=== PATIENT | female | born 1985 | race Caucasian/White ===

== ENCOUNTER 2017-12-24 18:29 | Emergency (ER) | payer OTHER ==
[2017-12-24 20:24] LABS: BILIRUBIN, URINE NEG (NEG); BLOOD, URINE NEG (NEG); GLUCOSE,URINE NEG (NEG); KETONE, URINE 10 mg/dL (NEG); NITRITE,URINE NEG (NEG); PH, URINE 6.5 (5.0-8.5); SQUAMOUS EPITHELIAL CELL URINE 12 /hpf (0-5); URINE COLOR YELLOW (YELLW/STRAW); URINE LEUKOCYTE ESTERASE LARGE (NEG)
--- NOTE | 2017-12-24 20:49 | PD ---
HPI Chief Complaint ctxs Date Seen: Dec 24, 2017 Time Seen: 20:42 Travel History International Travel<30 Days: No Contact w/Intl Traveler<30Days: No Known Affected Area: No History of Present Illness HPI pt. is a 32 y/o @ 33 4/7 weeks w/ c/o ctxs. pt. states been having cramping since 4pm. has increased in intensity and freq since. +FM, no lof/vb. Weeks Gestation: 33 Para: 0 : 2 History Past Medical History Medical History: Denies Significant Hx Obstetric History Obstetric History , ectopic preg x 1 Past Surgical History Narrative Surgical s/p lap salpingect 2/2 ectopic preg. Family History Family History: Negative Social History Alcohol Use: No Tobacco Use: No Substance Abuse: No Allergies-Medications (Allergen,Severity, Reaction): Coded Allergies: No Known Allergies (Verified Allergy, 12/24/17) Review of Systems Except as stated in HPI: all other systems reviewed are Neg Physical Exam Narrative GENERAL: Well-nourished, well-developed patient. SKIN: Warm and dry. HEAD: Normocephalic and atraumatic. EYES: No scleral icterus. No injection or drainage. ENT: No nasal drainage noted. Mucous membranes pink. Airway patent. NECK: Supple, trachea midline. No JVD. CARDIOVASCULAR: Regular rate and rhythm without murmurs, gallops, or rubs. RESPIRATORY: Breath sounds equal bilaterally. No accessory muscle use. BREASTS: Bilateral exam showed no masses , no retractions, no nipple discharge. ABDOMEN/GI: Abdomen soft, non-tender, bowel sounds present, no rebound, no guarding Gravid GENITOURINARY: External Genitalia: intact and normal in appearance Cervix: post Dilatation: closed Effacement: long Station: high Uterine Contractions: irreg FHT's: Category: 1 Reactive: + Variability: mod EXTREMITIES: No cyanosis or edema. BACK: Nontender without obvious deformity. No CVA tenderness. NEUROLOGICAL: Awake and alert. Motor and sensory grossly within normal limits. Five out of 5 muscle strength in all muscle groups. Normal speech. Data Data Vital Signs Reviewed: Yes Orders Orders Urinalysis - C+S If Indicated (12/24/17 19:43) Polysomnography Technician Clear For Discharge (12/24/17 ) Labs Laboratory Tests Test 12/24/17 19:49 Urine Color YELLOW Urine Turbidity HAZY Urine pH 6.5 Urine Specific [place] 1.016 Urine Protein NEG Urine Glucose (UA) NEG Urine Ketones 10 Urine Occult Blood NEG Urine Nitrite NEG Urine Bilirubin NEG Urine Urobilinogen LESS THAN 2.0 Urine Leukocyte Esterase LARGE Urine RBC 1 Urine WBC 8 Urine Squamous Epithelial Cells 12 Microscopic Urinalysis Comment CULT NOT INDICATED MDM Medical Record Reviewed: Yes Plan pt. given oral hydration w/ improvement in ctxs. pt. ua show ketones and pt. not hydrating and eating well. condition d/w pt. pt. to be d/c to home. given precautions for return. f/u as sched. Diagnosis Diagnosis: Primary Impression: uterine contractions in third trimester, antepartum Additional Impression: 33 weeks gestation of Disposition: 01 DISCHARGE HOME Patient Instructions: General Instructions, Labor (ED) Departure Forms: Tests/Procedures Nicolás Gentile Jr., MD Dec 24, 2017 20:49
== END 2017-12-24 20:52 | disposition home or self-care (01) ==
LOC: HOBED 18:29
DX: O99.89 Other specified diseases and conditions complicating pregnancy, childbirth and the puerperium (principal); N85.8 Other specified noninflammatory disorders of uterus; Z3A.33 33 weeks gestation of pregnancy
CPT/HCPCS: 59025; 81001

== ENCOUNTER 2018-01-07 10:12 | Emergency (ER) | payer OTHER ==
--- NOTE | 2018-01-07 10:54 | PD ---
HPI Chief Complaint ctx Date Seen: Jan 07, 2018 Time Seen: 10:50 Travel History International Travel<30 Days: No Contact w/Intl Traveler<30Days: No Known Affected Area: No History of Present Illness HPI Pt is a 32y/o @ 35.0wks. She has PNC with Dr. Mccall. She presents with c/o ctx which started at 9am and are coming q5m. She reports that they are painful. No LOF, VB. +FM. Weeks Gestation: 35 Para: 0 : 2 History Past Medical History Medical History: Denies Significant Hx Obstetric History Obstetric History 1. ectopic 2. current Past Surgical History Narrative Surgical LSC salpingectomy Family History Family History: Negative Social History Alcohol Use: No Tobacco Use: No Substance Abuse: No Allergies-Medications (Allergen,Severity, Reaction): Coded Allergies: No Known Allergies (Verified Allergy, Unknown, 12/24/17) Narrative Medication vitamins Review of Systems Except as stated in HPI: all other systems reviewed are Neg Physical Exam Narrative General: well developed, well nourished, no acute distress HEENT: normocephalic atraumatic, extraocular movements intact, neck supple Abdomen: soft, gravid, nontender, nondistended Uterus: fundus above umbilicus Extremities: full range of motion Skin: normal coloration, no rashes, no suspicious skin lesions noted Neurologic: cranial nerves 2-12 grossly intact, normal muscle tone, normal gait Psychiatric: normal mood and affect, appropriate FHTs: 120s, +accels, no decels, moderate variability, reactive [place]: single ctx seen Cvx: cl/th/hi Data Data Orders Orders Vital Signs (Adult) .ON ADMISSION (01/07/18 10:49) ^ Labor Status (01/07/18 10:49) ^ Non Stress Test (01/07/18 10:49) Ed Discharge Order (01/07/18 10:49) MDM Plan 32y/o @ 35.0wks with contractions. -- single ctx seen on toco -- cvx cl/th/hi -- FHTs cat 1 Dispo: stable for d/c home with precautions Diagnosis Diagnosis: Primary Impression: 35 weeks gestation of Additional Impression: Uterine contractions during Lesli Arroyo MD Jan 07, 2018 10:54
== END 2018-01-07 11:01 | disposition home or self-care (01) ==
LOC: HOBED 10:12
DX: O47.03 False labor before 37 completed weeks of gestation, third trimester (principal); Z3A.35 35 weeks gestation of pregnancy
CPT/HCPCS: 99283

== ENCOUNTER 2018-02-05 05:37 | Inpatient (IN) | payer OTHER ==
--- NOTE | 2018-02-04 07:54 | MH ---
cc: Jeff Mccall MD DATE OF ADMISSION: 02/05/2018 REASON FOR ADMISSION: Elective section at term. HISTORY OF PRESENT ILLNESS: The patient is a 32-year-old female, 2, para 0, IVF conception with estimated date of confinement of 02/11/2018 confirmed by serial ultrasound. Patient's course has been remarkable for presence of group B strep on a random culture. Blood type is A positive, screen negative. The remainder of her testing has all been normal. The patient's pelvic exam is notable for marked android pelvis with acute pubic arch. The patient is 4 feet 8 in height with estimated weight of 7-1/2 pounds. Consideration for cephalopelvic proportion was discussed, concerns for the patient's pelvic exam prohibiting vaginal delivery, the patient elected for section at term. PAST MEDICAL HISTORY: She denies any systemic or chronic disease states. ALLERGIES: NO KNOWN DRUG ALLERGIES. CURRENT MEDICATIONS: Include vitamins. PAST SURGICAL HISTORY: Includes ectopic in 2012 with removal of the right tube, operative laparoscopy for evaluation of fertility in 2013. FAMILY HISTORY: Noncontributory. SOCIAL HISTORY: She denies alcohol, tobacco or illicit drug use. She is . PHYSICAL EXAMINATION: GENERAL: The patient is a well-appearing, well-nourished female, in no acute distress. VITAL SIGNS: Stable. Blood pressure 138/72, pulse and respiratory rate are normal. heart tones in the 140s. The patient's weight is 165 pounds, approximately a 30-pound weight gain from the beginning of . HEENT: Normal. Pupils are equal, round, reactive to light. Sclerae are clear. NECK: Supple, full range of motion. EXTREMITIES: There is no cyanosis, clubbing, or edema of the lower extremities. LUNGS: Clear in all ruffin. CARDIAC: Regular rate and rhythm. ABDOMEN: Gravid, full-term. PELVIC: Presenting part is not in the pelvis. Cervix is long, closed and thick. NEUROLOGIC: Grossly intact, nonfocal. ASSESSMENT: The patient is 39 weeks' gestation, in vitro fertilization conception with contracted pelvis. PLAN OF MANAGEMENT: Elective section. Patient's group B strep status is positive. The patient's diabetes screen was normal. Jeff Mccall MD SJDc/KD , 01:27 PM , 01:44 PM
[2018-02-05] VITALS (9 sets, daily range): BP systolic 119–130; BP diastolic 58–77; PULSE 77–89; RESP 16–20; TEMP 97.7–98.4; O2SAT 100
[~2018-02-05] VITALS: Ht 149.9 cm; Wt 64.0 kg
[2018-02-05] MEDS ORDERED: CITRIC ACID-SODIUM CITRATE LIQ 30 ML UDC PO SCH (06:00)
[2018-02-05] MEDS ORDERED: LACTATED RINGER'S 1000 ML IV SCH (06:00)
[2018-02-05] MEDS ORDERED: ceFAZolin 2 GM PREMIX 50 ML IV SCH (06:00)
[2018-02-05] MEDS ORDERED: LACTATED RINGER'S 1000 ML IV ONE (06:00)
[2018-02-05] MEDS ORDERED: PRENTAB7 PO (06:09)
[2018-02-05 06:33] LABS: BASOPHIL % 0.3 % (0.0-2.0); EOSINOPHIL # 0.2 TH/MM3 (0-0.4); EOSINOPHIL % 1.9 % (0.0-4.0); HEMATOCRIT 31.2 % (35.0-46.0); HEMOGLOBIN 10.6 GM/DL (11.6-15.3); LYMPHOCYTE # 1.9 TH/MM3 (1.0-4.8); MEAN CELL VOLUME 90.5 FL (80.0-100.0); MEAN CORPUSCULAR HEMOGLOBIN 30.8 PG (27.0-34.0); MEAN CORPUSCULAR HGB CONC 34.1 % (32.0-36.0); MEAN PLATELET VOLUME 9.8 FL (7.0-11.0); MONO % 7.7 % (0.0-8.0); MONOCYTE # 0.8 TH/MM3 (0-0.9); NEUT % 73.1 % (16.0-70.0); PLATELET COUNT 242 TH/MM3 (150-450); RED BLOOD COUNT 3.45 MIL/MM3 (4.00-5.30)
[2018-02-05 07:08] LABS: BACTERIA, URINE FEW /hpf; BILIRUBIN, URINE NEG (NEG); BLOOD, URINE NEG (NEG); GLUCOSE,URINE NEG (NEG); KETONE, URINE NEG (NEG); MUCUS URINE FEW /lpf (OCC); NITRITE,URINE NEG (NEG); PH, URINE 6.5 (5.0-8.5); SQUAMOUS EPITHELIAL CELL URINE 4 /hpf (0-5); TRANSITIONAL EPI CELLS, URINE <1 /hpf; URINE COLOR YELLOW (YELLW/STRAW); URINE LEUKOCYTE ESTERASE LARGE (NEG)
[2018-02-05 07:12] LABS: BANDS 12 % (0-6); LYMPHOCYTES 15 % (9-44); MONOCYTES 7 % (0-8); NEUTROPHIL # MANUAL DIFF 8.1 TH/MM3 (1.8-7.7); POLYS (SEG NEUTROPHILS) 62 % (16-70)
[2018-02-05] MEDS ORDERED: MORPHINE SULFATE PF 5 MG/10 ML VIAL ONE (07:14)
[2018-02-05] MEDS ORDERED: ACETAMINOPHEN 1000 MG/100 ML 100 ML IV ONE (07:14)
[2018-02-05] MEDS ORDERED: OXYTOCIN 30 UNITS-500ML PREMIX 500 ML IV ONE (07:30)
[2018-02-05] MEDS ORDERED: KETOROLAC TROMETHAMINE 60 MG/2 ML (IM) VIAL IM PRN (07:30)
[2018-02-05] MEDS ORDERED: ACETAMINOPHEN 325 MG TAB PO PRN (07:30)
[2018-02-05] MEDS ORDERED: SIMETHICONE 80 MG CHEWABLE TAB PO PRN (07:30)
--- NOTE | 2018-02-05 08:41 | PD.OB.DELI ---
Procedure Note Section Procedure Performed by Jeff Mccall Procedure: Primary Low Transverse Sec (CPD/ maternal pelvimetry inadequate) Indication for delivery: Other (Inadequate maternal pelvis) Informed consent obtained: For anesthesia, For procedure Confirmed correct: Patient, Procedure, Site, Time-out taken Anesthesia: Spinal Medication prior to procedure: As documented in eMAR Monitoring during procedure: Blood pressure monitoring, aviation warfare systems operator, doppler, monitor, Pulse oximetry Urinary catheter: Inserted using sterile technique, To dependent drainage Sterile preparation: Duraprep, In usual fashion Position: Supine with wedge to right side, Supine with safety belt applied Operative Features Skin Incision: Pfannenstiel Uterine Incision: Low transverse w/knife / blunt ext, Low transverse w/knife / scissors Membranes Ruptured: Artificially Presentation: Occiput anterior Delivery date: February 05, 2018 Delivery time: 08:01 Delivery of : Assisted (vacuum x1 pull) Infant: Male One Minute : 7 Five Minute : 8 Weight: 6/5 Status of : Viable Placenta delivered: Intact Medications: Antibiotics, Oxytocin Estimated blood loss: 600cc Procedure tolerated: Well Maternal Condition: Stable Condition: Stable Jeff Mccall MD February 05, 2018 08:41
[2018-02-05] MEDS ORDERED: SODIUM CHLORIDE 0.9% FLUSH 10 ML FLUSH IV FLUSH SCH (09:00)
[2018-02-05] MEDS ORDERED: OXYTOCIN 30 UNITS-500ML PREMIX 500 ML ONE (09:06)
--- NOTE | 2018-02-05 09:17 | MP ---
cc: Jeff Mccall MD DATE OF OPERATION: 02/05/2018 DATE OF PROCEDURE: 02/05/2018 PREOPERATIVE DIAGNOSES: Term intrauterine , history in vitro fertilization conception, inadequate maternal pelvis. POSTOPERATIVE DIAGNOSES: Term intrauterine , history in vitro fertilization conception, inadequate maternal pelvis. PROCEDURE PERFORMED: Primary low transverse section delivery of viable male infant. SURGEON: Jeff Mccall MD ANESTHESIA: Spinal. ESTIMATED BLOOD LOSS: 600 mL. DRAINS: Barreto to gravity. PROPHYLAXIS: Sequentials on the lower extremities. OPERATIVE FINDINGS: Male infant delivered with the aid of a vacuum extractor with 1 pull. Apgars were 7 at 1 minute and 8 at 5. Baby weighed 6 pounds 5 ounces. Clear fluid. INDICATIONS FOR PROCEDURE: The patient at term. Pelvic exam in the beginning of was concerning for inadequate pelvimetry. This was confirmed later. Discussion for risks and options with the patient. The patient, after reviewing risks, benefits, and complications, elected for section. DESCRIPTION OF PROCEDURE: The patient received Ancef 2 grams prophylactically. She underwent spinal anesthetic without complication with good result. She was prepped and draped, Barreto was inserted by sterile technique and sequentials were placed on lower extremities for VTE prophylaxis. Timeout was conducted and agreed on with all present in the room. She had excellent pain management throughout. A Pfannenstiel incision was used, taking it through the skin down through the subcutaneous layer to the fascia, which was scored and then dissected laterally, allowing the rectus muscle to be dissected away from the fascia, identifying the peritoneum in the midline, opening it and extending it. The bladder blade was placed over the pubic symphysis. A transverse incision was made in the lower uterine segment without difficulty. Clear fluid was noted. The was delivered with the aid of a vacuum extractor x 1 pull. No cord entanglement. Infant was delivered on the operative field with good tone and cry. Cord was doubly clamped and cut, and the infant was taken to [place] by the nurse present for delivery. Cord samples obtained for typing. Placenta was then removed intact with trailing membranes. Uterus was explored. There was no retained tissue. She was receiving Pitocin for tocolysis and prevention of uterine bleeding. Closure of the hysterotomy scar was made with a double layer, first was a running locking suture of 0 Monocryl, followed by a second imbricating suture of 0 Monocryl. Pelvis was examined and irrigated. No active bleeding or hematoma. The anatomy was normal. Full count was made correct. The peritoneum was then closed with a running suture of 2-0 Monocryl. The fascia was then closed with a running suture of 0 Vicryl. The subcutaneous space was dried and closed, reapproximated with a running suture of 2-0 Monocryl. Orly were used to close the skin. A dressing was applied. The final count was correct. The patient was stable. was doing well in the nursery. MD PATRICK Llanes/DREW , 08:46 AM , 09:16 AM
[2018-02-05] MEDS ORDERED: EPIDURAL-NO SYSTEMIC NARCOTICS PRN (10:30)
[2018-02-05] MEDS ORDERED: EPIDURAL-DO NOT ADMINISTER ANTICOAGULANTS PRN (10:30)
[2018-02-05] MEDS ORDERED: EPIDURAL-DIPHENHYDRAMINE HCL 50 MG/ML VIAL IV PUSH PRN (10:30)
[2018-02-05] MEDS ORDERED: EPIDURAL-DIPHENHYDRAMINE HCL 50 MG CAP PO PRN (10:30)
[2018-02-05] MEDS ORDERED: EPIDURAL-NALOXONE HCL 0.4 MG/ML AMP IV PUSH PRN (10:30)
[2018-02-05] MEDS: ONDANSETRON HCL 4 MG/2 ML VIAL IV PUSH PRN ×2 (10:33→11:51)
[2018-02-05] MEDS ORDERED: ePHEDrine/NS 25 MG/5 ML SYRINGE IV ONE (12:00)
[2018-02-05] MEDS ORDERED: DEXAMETHASONE SOD PHOS 4 MG/ML VIAL IV ONE (12:00)
[2018-02-05] MEDS ORDERED: ceFAZolin INJ 1,000 MG VIAL IV ONE (12:00)
[2018-02-05] MEDS ORDERED: OXYTOCIN 10 UNIT/ML AMP IV ONE (12:00)
[2018-02-05] MEDS ORDERED: LACTATED RINGER'S 1000 ML INJ 2,000 ML IV ONE (12:00)
[2018-02-05] MEDS ORDERED: ONDANSETRON HCL 4 MG/2 ML VIAL IV ONE (12:00)
[2018-02-05] MEDS ORDERED: ONDANSETRON HCL 4 MG/2 ML VIAL IV PUSH ONE (12:15)
[2018-02-05] MEDS ORDERED: PROMETHAZINE INJ 25 MG/ML VIAL IM PRN (12:15)
[2018-02-05] MEDS ORDERED: OXYTOCIN 30 UNITS-500ML PREMIX 500 ML IV PRN (12:30)
[2018-02-05] MEDS: LACTATED RINGER'S 1000 ML INJ 1,000 ML IV SCH ×2 (12:59→22:28)
[2018-02-06 00:23] VITALS: BP 95/56; PULSE 76; RESP 18; TEMP 98.5
[2018-02-06] MEDS: DOCUSATE SODIUM 50 MG/SENNA 8.6 MG TAB PO PRN ×2 (03:08→22:11)
[2018-02-06] MEDS: IBUPROFEN 600 MG TAB PO PRN (03:08)
[2018-02-06 04:22] VITALS: BP 96/60; PULSE 90; RESP 18; TEMP 97.5
[2018-02-06 05:03] LABS: AUTOMATED NEUTROPHIL # 9.7 TH/MM3 (1.8-7.7); BASOPHIL % 0.1 % (0.0-2.0); EOSINOPHIL # 0.1 TH/MM3 (0-0.4); EOSINOPHIL % 0.8 % (0.0-4.0); HEMATOCRIT 26.4 % (35.0-46.0); HEMOGLOBIN 8.8 GM/DL (11.6-15.3); LYMPH % 17.3 % (9.0-44.0); LYMPHOCYTE # 2.3 TH/MM3 (1.0-4.8); MEAN CELL VOLUME 91.9 FL (80.0-100.0); MEAN CORPUSCULAR HEMOGLOBIN 30.8 PG (27.0-34.0); MEAN CORPUSCULAR HGB CONC 33.5 % (32.0-36.0); MEAN PLATELET VOLUME 9.8 FL (7.0-11.0); MONO % 9.3 % (0.0-8.0); MONOCYTE # 1.2 TH/MM3 (0-0.9); NEUT % 72.5 % (16.0-70.0); PLATELET COUNT 214 TH/MM3 (150-450); RED BLOOD COUNT 2.87 MIL/MM3 (4.00-5.30); RED CELL DISTRIBUTION WIDTH 12.9 % (11.6-17.2); WHITE BLOOD COUNT 13.4 TH/MM3 (4.0-11.0)
[2018-02-06] MEDS: SODIUM CHLORIDE 0.9% FLUSH 10 ML FLUSH IV FLUSH PRN (06:38)
[2018-02-06 08:00] VITALS: BP 130/69; PULSE 85; RESP 20; TEMP 97.7
--- NOTE | 2018-02-06 11:37 | HHI.OB ---
Subjective Post Operative Day: 1 Remarks Doing well Pain is not well controlled. I have not taken any medicine. Baby is doing great. Bleeding is normal Objective Vitals/I&O Vital Signs Date Time Temp Pulse Resp B/P (MAP) Pulse Ox O2 Delivery O2 Flow Rate FiO2 02/06/18 08:00 97.7 85 20 130/69 (89) 02/06/18 04:22 97.5 90 18 96/60 (72) 02/06/18 00:23 98.5 76 18 95/56 (69) 02/05/18 20:56 97.9 77 18 119/58 (78) 02/05/18 17:19 18 02/05/18 16:30 97.9 79 20 126/69 (88) 02/05/18 12:59 20 02/05/18 12:30 18 Result Diagram: 02/06/18 0423 Objective Remarks GENERAL: Well-nourished, well-developed patient. CARDIOVASCULAR: Regular rate and rhythm without murmurs, gallops, or rubs. RESPIRATORY: Breath sounds equal bilaterally. No accessory muscle use. ABDOMEN/GI: Abdomen soft, non-tender, bowel sounds present. Incision: Clean, dry and intact. Fundus: Firm, non-tender at umbilicus. GENITOURINARY: Light to moderate bleeding. EXTREMITIES: No cyanosis or edema, non-tender, without signs of DVT. Medications and IVs Current Medications Medications (Trade) Dose Ordered Sig/Lala Route Start Time Stop Time Status Last Admin Lactated Ringer's 1,000 ml @ 150 mls/hr Q6H40M IV 02/05/18 06:00 (Bicitra Liq) 30 ml WOOD GLUER PO 02/05/18 06:00 02/08/18 05:59 02/05/18 07:22 Cefazolin Sodium/ Dextrose 50 ml @ 100 mls/hr WOOD GLUER IV 02/05/18 06:00 02/08/18 05:59 Oxytocin 500 ml @ 100 mls/hr UNSCH X1 PRN IV 02/05/18 12:30 02/06/18 12:29 (NS Flush) 2 ml BID IV FLUSH 02/05/18 09:00 (NS Flush) 2 ml UNSCH PRN IV FLUSH 02/05/18 07:30 02/06/18 06:38 (Mylicon Chew) 80 mg QID PRN PO 02/05/18 07:30 (Tylenol) 650 mg Q6H PRN PO 02/05/18 07:30 (Motrin) 600 mg Q6H PRN PO 02/05/18 07:30 02/06/18 03:08 (Percocet 5-325 Mg) 1 tab Q4H PRN PO 02/05/18 07:30 (Percocet 5-325 Mg) 2 tab Q4H PRN PO 02/05/18 07:30 (Janis-Colace) 2 tab Q12H PRN PO 02/05/18 07:30 02/06/18 03:08 (M-M-R Ii Inj) 0.5 ml ONCE ONCE SQ 02/06/18 16:00 02/06/18 16:01 (Boostrix Inj) 0.5 ml ONCE ONCE IM 02/06/18 16:00 02/06/18 16:01 02/06/18 10:38 (Zofran Inj) 4 mg Q6H PRN IV PUSH 02/05/18 07:30 02/05/18 11:51 (Phenergan Inj) 25 mg Q6H PRN IM 02/05/18 12:15 02/05/18 12:59 Assessment/Plan Assessment and Plan POD #1 Pain is not controlled..discussed in detail the need to control her pain. Will give Toradol IV now and follow Anemia will start venofer for 3 days. Orly remove before d/c home. Jorge Kwok MD February 06, 2018 11:37
[2018-02-06] MEDS ORDERED: MORPHINE SULFATE 4 MG/ML INJ IV PUSH ONE (11:45)
[2018-02-06] MEDS: KETOROLAC TROMETHAMINE 30 MG/ML (IVP) VIAL IV PUSH SCH ×3 (12:07→23:53)
[2018-02-06] MEDS: IRON SUCROSE INJ 200 MG in SODIUM CHLORIDE 0.9% INJ 100 ML IV SCH (12:08)
[2018-02-06] MEDS: oxyCODONE/ACETAMINOPHEN 5 MG/325 MG TAB PO PRN ×2 (15:57→22:12)
[2018-02-06] MEDS ORDERED: MEASLES, MUMPS, RUBELLA VACCINE 0.5 ML VIAL SQ ONE (16:00)
[2018-02-06] MEDS ORDERED: DIPHTH/TETANUS/ACEL PERTUSSIS (BOOSTER) 0.5 ML VIAL/PFS IM ONE (16:00)
[2018-02-06 20:38] VITALS: BP 98/61; PULSE 75; RESP 18; TEMP 97.9
[2018-02-07] MEDS: IBUPROFEN 600 MG TAB PO PRN ×2 (06:09→15:09)
[2018-02-07] MEDS: oxyCODONE/ACETAMINOPHEN 5 MG/325 MG TAB PO PRN ×2 (06:09→15:09)
[2018-02-07 07:30] VITALS: BP 105/67; PULSE 18; RESP 18; TEMP 98.1
[2018-02-07] MEDS: SODIUM CHLORIDE 0.9% FLUSH 10 ML FLUSH IV FLUSH PRN (10:49)
--- NOTE | 2018-02-07 11:52 | HHI.OB ---
Subjective Post Operative Day: 2 Objective Vitals/I&O Vital Signs Date Time Temp Pulse Resp B/P (MAP) Pulse Ox O2 Delivery O2 Flow Rate FiO2 02/07/18 07:30 98.1 18 18 105/67 (80) 02/06/18 20:38 97.9 75 18 98/61 (73) 02/06/18 13:07 18 Result Diagram: 02/06/18 0423 Objective Remarks GENERAL: Well-nourished, well-developed patient. CARDIOVASCULAR: Regular rate and rhythm without murmurs, gallops, or rubs. RESPIRATORY: Breath sounds equal bilaterally. No accessory muscle use. ABDOMEN/GI: Abdomen soft, non-tender, bowel sounds present. Incision: Clean, dry and intact. Fundus: Firm, non-tender at umbilicus. GENITOURINARY: Light to moderate bleeding. EXTREMITIES: No cyanosis or edema, non-tender, without signs of DVT. Medications and IVs Current Medications Medications (Trade) Dose Ordered Sig/Lala Route Start Time Stop Time Status Last Admin Lactated Ringer's 1,000 ml @ 150 mls/hr Q6H40M IV 02/05/18 06:00 (Bicitra Liq) 30 ml PRODUCT APPLICATIONS SCIENTIST PO 02/05/18 06:00 02/08/18 05:59 02/05/18 07:22 Cefazolin Sodium/ Dextrose 50 ml @ 100 mls/hr PRODUCT APPLICATIONS SCIENTIST IV 02/05/18 06:00 02/08/18 05:59 (NS Flush) 2 ml BID IV FLUSH 02/05/18 09:00 (NS Flush) 2 ml UNSCH PRN IV FLUSH 02/05/18 07:30 02/07/18 10:49 (Mylicon Chew) 80 mg QID PRN PO 02/05/18 07:30 (Tylenol) 650 mg Q6H PRN PO 02/05/18 07:30 (Motrin) 600 mg Q6H PRN PO 02/05/18 07:30 02/07/18 06:09 (Percocet 5-325 Mg) 1 tab Q4H PRN PO 02/05/18 07:30 (Percocet 5-325 Mg) 2 tab Q4H PRN PO 02/05/18 07:30 02/07/18 06:09 (Janis-Colace) 2 tab Q12H PRN PO 02/05/18 07:30 02/06/18 22:11 (Zofran Inj) 4 mg Q6H PRN IV PUSH 02/05/18 07:30 02/05/18 11:51 (Phenergan Inj) 25 mg Q6H PRN IM 02/05/18 12:15 02/05/18 12:59 Iron Sucrose 200 mg/Sodium Chloride 110 ml @ 110 mls/hr DAILY IV 02/06/18 11:45 02/08/18 09:59 02/06/18 12:08 Assessment/Plan Assessment and Plan POD #2 Anemia continue venofer for 3 days. Virgil remove before d/c home. Order written to d/c in the am. Jorge Kwok MD February 07, 2018 11:52
[2018-02-07] MEDS ORDERED: OXYC1TAB63 PO (12:30)
[2018-02-07] MEDS ORDERED: IBUP-232 PO (12:30)
--- NOTE | 2018-02-07 12:31 | HHI.DCPOC ---
Discharge Care Plan Diagnosis: (1) Liveborn by (2) Short stature Report Symptoms to Your Doctor -Temperature above 100.5 degrees -Redness, of incision or excessive or foul smelling drainage -Unusual pain or calf pain -Increased vaginal bleeding -Painful or difficulty urinating -Feelings of extreme sadness or anxiety after 2 weeks Goals to Promote Your Health * To prevent worsening of your condition and complications * To maintain your health at the optimal level Directions to Meet Your Goals Take your medications as prescribed Follow your dietary instruction Follow activity as directed Ensure plenty of rest for recovery Drink fluids for hydration Keep your appointments as scheduled Take your immunizations and boosters as scheduled If your symptoms worsen call your PCP, if no PCP go to Urgent Care Center or Emergency Room Smoking is Dangerous to Your Health. Avoid second hand smoke Call the 24-hour crisis hotline for domestic abuse at Jorge Kwok MD February 07, 2018 12:31
[2018-02-07] MEDS: IRON SUCROSE INJ 200 MG in SODIUM CHLORIDE 0.9% INJ 100 ML IV SCH (12:44)
[2018-02-07] MEDS: DOCUSATE SODIUM 50 MG/SENNA 8.6 MG TAB PO PRN (15:06)
[2018-02-07 19:30] VITALS: PULSE 79; RESP 18; TEMP 98
[2018-02-08] MEDS: DOCUSATE SODIUM 50 MG/SENNA 8.6 MG TAB PO PRN (00:32)
[2018-02-08] MEDS: oxyCODONE/ACETAMINOPHEN 5 MG/325 MG TAB PO PRN ×2 (00:32→08:11)
[2018-02-08] MEDS: IBUPROFEN 600 MG TAB PO PRN (04:02)
--- NOTE | 2018-02-08 07:42 | HHI.OB ---
Subjective Post Operative Day: 3 Remarks +BM but very small amount, no other complaints Objective Vitals/I&O Vital Signs Date Time Temp Pulse Resp B/P (MAP) Pulse Ox O2 Delivery O2 Flow Rate FiO2 02/07/18 19:30 98.0 79 18 Result Diagram: 02/06/18 0423 Objective Remarks GENERAL: Well-nourished, well-developed patient. CARDIOVASCULAR: Regular rate and rhythm without murmurs, gallops, or rubs. RESPIRATORY: Breath sounds equal bilaterally. No accessory muscle use. ABDOMEN/GI: Abdomen soft, non-tender, bowel sounds present. Incision: Clean, dry and intact. Fundus: Firm, non-tender at umbilicus. GENITOURINARY: Light to moderate bleeding. EXTREMITIES: No cyanosis or edema, non-tender, without signs of DVT. Medications and IVs Current Medications Medications (Trade) Dose Ordered Sig/Lala Route Start Time Stop Time Status Last Admin Lactated Ringer's 1,000 ml @ 150 mls/hr Q6H40M IV 02/05/18 06:00 (NS Flush) 2 ml BID IV FLUSH 02/05/18 09:00 (NS Flush) 2 ml UNSCH PRN IV FLUSH 02/05/18 07:30 02/07/18 10:49 (Mylicon Chew) 80 mg QID PRN PO 02/05/18 07:30 (Tylenol) 650 mg Q6H PRN PO 02/05/18 07:30 (Motrin) 600 mg Q6H PRN PO 02/05/18 07:30 02/08/18 04:02 (Percocet 5-325 Mg) 1 tab Q4H PRN PO 02/05/18 07:30 02/08/18 00:32 (Percocet 5-325 Mg) 2 tab Q4H PRN PO 02/05/18 07:30 02/07/18 15:09 (Janis-Colace) 2 tab Q12H PRN PO 02/05/18 07:30 02/08/18 00:32 (Zofran Inj) 4 mg Q6H PRN IV PUSH 02/05/18 07:30 02/05/18 11:51 (Phenergan Inj) 25 mg Q6H PRN IM 02/05/18 12:15 02/05/18 12:59 Iron Sucrose 200 mg/Sodium Chloride 110 ml @ 110 mls/hr DAILY IV 02/06/18 11:45 02/08/18 09:59 02/07/18 12:44 Assessment/Plan Assessment and Plan POD #3 Anemia continue venofer for 3 days. Orly remove before d/c home. MOM Discharge Planning today Attending Attestation pt seen by Samantha Mckeon MD February 08, 2018 07:42
[2018-02-08] MEDS ORDERED: PERI PO (07:44)
[2018-02-08] MEDS ORDERED: MAGNESIUM HYDROXIDE SUSP 30 ML CUP PO ONE (07:45)
[2018-02-08 08:00] VITALS: BP 114/70; PULSE 89; RESP 18; TEMP 97.8
[2018-02-08] MEDS: IRON SUCROSE INJ 200 MG in SODIUM CHLORIDE 0.9% INJ 100 ML IV SCH (08:54)
== END 2018-02-08 13:23 | disposition home or self-care (01) | DRG 766 ==
LOC: H2EB 05:37 → H1EA 10:33
PROVIDERS: ADMIT Obstetrics & Gynecology; ATTEND Obstetrics & Gynecology
PROC: 10D00Z1 Extraction of Products of Conception, Low, Open Approach (ICD-10-PCS; principal; 2018-02-05)
DX: O99.02 Anemia complicating childbirth (principal); D64.9 Anemia, unspecified; O99.824 Streptococcus B carrier state complicating childbirth; O33.1 Maternal care for disproportion due to generally contracted pelvis; Z3A.39 39 weeks gestation of pregnancy; Z37.0 Single live birth
CPT/HCPCS: 59025; 80307; 81001; 85007; 85025; 85027; 86850; 86900; 86901; 90715; J0131; J0690; J1100; J1756; J1885; J2270; J2274; J2405; J2550; J2590; J3010; J7120